=== PATIENT | female | born 1930 | race Caucasian/White ===

== ENCOUNTER 2017-02-06 | Emergency (ER) | payer MEDICARE ==
[~2017-02-06] MED LIST: ADULT LOW DOSE81 MG PO; ASPIR-LOW81 M1 PO; BACTRIM DS TABL1 TAB PO; BENICAR HCT 40-1 TAB; BP MED; CALTRATE-600/VI1 TA1; CHOLESTYRAMINE PO; DICLOFENAC SODI75 M1 PO; EPA-DHA SOFTGEL1 CAP PO; EXFORGE; FEROSUL325 M1 PO; FIBERCON625 MG PO; FISH OIL 1,0001 CAP PO; GLUCOPHAGE500 M3 PO; GLUCOPHAGE500 MG PO; GLUCOSAMINE; GLYBURIDE-MET1 UDTA PO; KEFLEX500 M4 PO; LOSARTAN-HCTZ1 EAC3 PO; LOSARTAN-HCTZ1 EAC5 PO; MAVIK4 MG; NORCO 5-325 TA1 EACH PO; NORCO 5/325 TAB1 TAB PO; PROTONIX40 M2 PO; QUESTRAN LIGHT; QUESTRAN LIGHT210 GM PO; QUESTRAN PACKET4 G1 PO; SIMVASTATIN20 M1 PO; TYLENOL325 M2 PO; ZOCOR20 MG PO
[2017-02-06] MEDS ORDERED: KLOR-CON 1010 ME1 PO (10:23)
[2017-02-06] MEDS ORDERED: OMEPRAZOLE20 M3 PO (10:47)
[2017-02-06] MEDS ORDERED: PYRIDIUM200 M2 PO (11:04)
[2017-02-06] MEDS ORDERED: MACROBID 100 M100 M1 PO (11:04)
== END 2017-02-06 11:22 ==
DX: N39.0 Urinary tract infection, site not specified (principal); I10 Essential (primary) hypertension; E78.00 Pure hypercholesterolemia, unspecified; M19.90 Unspecified osteoarthritis, unspecified site; Z90.710 Acquired absence of both cervix and uterus; Z90.49 Acquired absence of other specified parts of digestive tract

== ENCOUNTER 2017-03-29 08:22 | Inpatient (IN) | payer MEDICARE, OTHER ==
[~2017-03-29 08:22] MED LIST changes: +KLOR-CON 1010 ME1 PO; +MACROBID 100 M100 M1 PO; +OMEPRAZOLE20 M3 PO; +PYRIDIUM200 M2 PO
[2017-03-29 09:22] LABS: BASO % 0.1 % (0-2); EOS % 0.3 % (0-7); HCT-HEMATOCRIT 37.8 % (34.0-49.0); HGB-HEMOGLOBIN 12.2 gm/dl (12.0-15.5); IMMATURE GRANULOCYTES ABSOLUTE 0.08 tho/cmm (0-0.03); IMMATURE GRANULOCYTES PERCENT 0.6 % (0-0.3); LYMPH % 12.7 % (20-45); LYMPH ABSOLUTE COUNT 1.7 tho/cmm (0.8-4.5); MCH (MEAN CORPUSCULAR HGB) 29.8 pg (28.0-32.0); MCHC MEAN CORPUSCULAR HGB CONC 32.3 % (32.0-36.0); MCV (MEAN CELL VOLUME) 92.4 fl (82.0-96.0); MEAN PLATELET VOLUME 11.7 cmc (9.4-12.4); MONO % 7.1 % (0-12); MONOCYTE ABSOLUTE COUNT 0.9 tho/cmm (0.0-1.2); NEUTROPHIL ABSOLUTE COUNT 10.5 tho/cmm (1.6-8.0); NEUTROPHIL-AUTOMATED 10.5 tho/cmm (1.6-8.0); NEUTROPHILS % 79.2 % (40-80); PLATELET COUNT 211 tho/cmm (150-450); RED BLOOD COUNT 4.09 mil/cmm (4.00-5.20); RED CELL DISTRIBUTION WIDTH 14.2 % (12.4-16.4); WHITE BLOOD COUNT 13.3 tho/cmm (4.0-10.0)
[2017-03-29 09:31] LABS: ANION GAP 14 mmol/L (0-20); BLOOD UREA NITROGEN 14 mg/dl (6-24); CALCIUM 8.9 mg/dl (8.5-10.5); CARBON DIOXIDE-VENOUS 29 mmol/L (22-32); CHLORIDE 103 mmol/l (96-110); CREATININE 0.94 mg/dl (0.50-1.10); GLUCOSE 168 mg/dL (70-110); SODIUM 143 mmol/L (135-145); eGFR VALUE FOR BLACK 65 mL/Min
[2017-03-29 09:38] LABS: POTASSIUM 2.8 mmol/L (3.7-5.1)
[2017-03-29] MEDS ORDERED: ASPIRIN EC81 MG PO (10:14)
[2017-03-29] MEDS ORDERED: VITAMIN C500 M3 PO (10:14)
[2017-03-30 06:02] LABS: BASO % 0.1 % (0-2); EOS % 0.4 % (0-7); HCT-HEMATOCRIT 32.2 % (34.0-49.0); HGB-HEMOGLOBIN 10.2 gm/dl (12.0-15.5); IMMATURE GRANULOCYTES ABSOLUTE 0.05 tho/cmm (0-0.03); IMMATURE GRANULOCYTES PERCENT 0.5 % (0-0.3); LYMPH % 16.8 % (20-45); LYMPH ABSOLUTE COUNT 1.7 tho/cmm (0.8-4.5); MCH (MEAN CORPUSCULAR HGB) 29.5 pg (28.0-32.0); MCHC MEAN CORPUSCULAR HGB CONC 31.7 % (32.0-36.0); MCV (MEAN CELL VOLUME) 93.1 fl (82.0-96.0); MEAN PLATELET VOLUME 11.5 cmc (9.4-12.4); MONO % 8.2 % (0-12); MONOCYTE ABSOLUTE COUNT 0.8 tho/cmm (0.0-1.2); NEUTROPHIL ABSOLUTE COUNT 7.5 tho/cmm (1.6-8.0); NEUTROPHIL-AUTOMATED 7.5 tho/cmm (1.6-8.0); PLATELET COUNT 166 tho/cmm (150-450); RED BLOOD COUNT 3.46 mil/cmm (4.00-5.20); RED CELL DISTRIBUTION WIDTH 14.3 % (12.4-16.4); WHITE BLOOD COUNT 10.1 tho/cmm (4.0-10.0)
[2017-03-30 06:12] LABS: ANION GAP 13 mmol/L (0-20); BLOOD UREA NITROGEN 11 mg/dl (6-24); CALCIUM 8.4 mg/dl (8.5-10.5); CARBON DIOXIDE-VENOUS 27 mmol/L (22-32); CHLORIDE 104 mmol/l (96-110); CREATININE 0.77 mg/dl (0.50-1.10); GLUCOSE 135 mg/dL (70-110); MAGNESIUM 1.6 mg/dl (1.8-2.6); POTASSIUM 3.4 mmol/L (3.7-5.1); SODIUM 141 mmol/L (135-145); eGFR VALUE FOR BLACK 82 mL/Min
== END 2017-03-31 13:45 | DRG 603 ==
LOC: EDMED 08:22 → EMR2 11:43 → 5WE 13:05
PROVIDERS: Emergency Medicine; Internal Medicine; ADMIT Hospitalist
DX: L03.115 Cellulitis of right lower limb (principal); E11.9 Type 2 diabetes mellitus without complications; E83.42 Hypomagnesemia; I10 Essential (primary) hypertension; K21.9 Gastro-esophageal reflux disease without esophagitis; E87.6 Hypokalemia; E78.5 Hyperlipidemia, unspecified; M85.80 Other specified disorders of bone density and structure, unspecified site; Z96.652 Presence of left artificial knee joint; Z79.82 Long term (current) use of aspirin; Z79.84 Long term (current) use of oral hypoglycemic drugs
CPT/HCPCS: G8978-GP-CJ; G8979-GP-CK; J0696; J1650; J1815; J3370; J3475; J3480